=== PATIENT | female | born 1965 | race Caucasian/White ===

== ENCOUNTER 2017-03-31 22:11 | Emergency (ER) | payer OTHER ==
[~2017-03-31] VITALS: Ht 170.2 cm; Wt 65.0 kg
[2017-03-31 22:36] LABS: DAU SCREEN DISCLAIMER
[2017-03-31 22:51] LABS: ASPARTATE AMINO TRANSFERASE 67 U/L (15-37); BLOOD UREA NITROGEN 11 mg/dL (7-18)
[2017-03-31 22:57] LABS: ACETAMINOPHEN < 2 mcg/mL (10-30)
[2017-04-01] MEDS ORDERED: DIPHENHYDRAMINE 25 MG CAPSULE ONE (03:44)
[2017-04-01 05:42] VITALS: BP 136/74
== END 2017-04-01 05:44 | disposition home or self-care (01) ==
LOC: ED 23:59
DX: F32.0 Major depressive disorder, single episode, mild (principal); F10.120 Alcohol abuse with intoxication, uncomplicated
CPT/HCPCS: 36415; 80053; 80307; 80329; 81003; 84703; 85025; 99284; G0480